=== PATIENT | male | born 1950 | race Caucasian/White ===

== ENCOUNTER 2020-10-31 22:30 | Inpatient (IN) | payer MEDICARE, MEDICAID ==
[~2020-10-31] VITALS: Ht 175.3 cm; Wt 83.5 kg
[2020-11-01] MEDS ORDERED: LABETALOL HCL 20MG/4ML CARPUJECT IV ONE (01:00)
[2020-11-01 01:57] LABS: BASOPHILS % 0.8 % (0.0-2.0); EOSINOPHILS % 0.6 % (0.0-5.0); HEMATOCRIT. 42.6 % (42.0-52.0); HEMOGLOBIN. 14.6 g/dL (14.0-18.0); LYMPHOCYTES % 26.2 % (20.0-50.0); MEAN CORPUSCULAR HEMOGLOBIN 31.5 pg (28.0-32.0); MEAN CORPUSCULAR VOLUME 91.9 fL (80.0-94.0); MEAN PLATELET VOLUME 10.8 fl (7.4-10.4); MONOCYTES % 8.4 % (2.0-8.0); PLATELET 146 x1000/uL (130-400); RED BLOOD CELL COUNT 4.63 mill/uL (4.7-6.1); RED CELL DISTRIBUTION WIDTH 13.8 % (11.6-14.6)
[2020-11-01] MEDS ORDERED: LABETALOL 5MG/ML SYR 20 MG/4 ML SYRINGE IV ONE (02:00)
[2020-11-01 02:04] LABS: CHLORIDE 109 mEq/L (98-107)
[2020-11-01 02:17] LABS: CANNABINOID URINE SCREEN NEGATIVE (NEGATIVE); METHADONE URINE SCREEN NEGATIVE (NEGATIVE); OPIATES URINE SCREEN NEGATIVE (NEGATIVE); PHENCYCLIDINE URINE SCREEN NEGATIVE (NEGATIVE)
[2020-11-01 02:18] LABS: *AMPHETAMINES SCREEN URINE NEGATIVE (NEGATIVE); *BARBITURATES SCREEN URINE NEGATIVE (NEGATIVE); *BENZODIAZEPINES SCREEN URINE NEGATIVE (NEGATIVE); *COCAINE SCREEN URINE NEGATIVE (NEGATIVE)
[2020-11-01] MEDS: NICARDIPINE 40MG/200ML PREMIX 200 ML IV PRN ×2 (02:42→06:50)
[2020-11-01] MEDS ORDERED: ACETAMINOPHEN 325MG TABLET PO PRN ×3 (08:30→14:00)
[2020-11-01] MEDS ORDERED: MAGNESIUM/ALUMINUM HYDROXIDE/SIMETHICONE 30ML UDC PO PRN (14:00)
[2020-11-01] MEDS ORDERED: ONDANSETRON HCL 4MG/2ML INJ IV PRN (14:00)
[2020-11-01] MEDS ORDERED: DIPHENHYDRAMINE 50MG/ML VIAL IV PRN (14:00)
[2020-11-01] MEDS: SODIUM CHLORIDE 0.9% INJ 3ML FLUSH IVF SCH ×2 (14:00→22:35)
[2020-11-01] MEDS ORDERED: CLONIDINE 0.2MG TABLET PO PRN (14:00)
[2020-11-01] MEDS: THIAMINE HCL 100MG TABLET PO SCH (14:09)
[2020-11-01] MEDS: AMLODIPINE 10MG TABLET PO SCH (14:10)
[2020-11-01] MEDS: BENAZEPRIL 10MG TABLET PO SCH (15:15)
[2020-11-01 16:30] VITALS: BP 192/88
[2020-11-01 17:08] VITALS: BP 192/88
[2020-11-01 20:00] VITALS: BP 191/90
[2020-11-01] MEDS: HYDRALAZINE 20MG/ML VIAL IV PRN (20:51)
[2020-11-02] MEDS: SODIUM CHLORIDE 0.9% INJ 3ML FLUSH IVF SCH ×3 (05:09→21:05)
[2020-11-02] MEDS: HYDRALAZINE 20MG/ML VIAL IV PRN (05:09)
[2020-11-02 06:09] LABS: CHLORIDE 109 mEq/L (98-107)
[2020-11-02 06:10] LABS: BASOPHILS % 0.9 % (0.0-2.0); EOSINOPHILS % 1.5 % (0.0-5.0); HEMATOCRIT. 45.3 % (42.0-52.0); HEMOGLOBIN. 15.1 g/dL (14.0-18.0); LYMPHOCYTES % 26.3 % (20.0-50.0); MEAN CORPUSCULAR HEMOGLOBIN 30.8 pg (28.0-32.0); MEAN CORPUSCULAR VOLUME 92.3 fL (80.0-94.0); MEAN PLATELET VOLUME 10.8 fl (7.4-10.4); MONOCYTES % 9.3 % (2.0-8.0); PLATELET 151 x1000/uL (130-400); RED CELL DISTRIBUTION WIDTH 13.8 % (11.6-14.6)
[2020-11-02 06:14] LABS: PHOSPHORUS 4.2 mg/dL (2.5-4.9)
[2020-11-02 08:00] VITALS: BP 202/95
[2020-11-02] MEDS: AMLODIPINE 10MG TABLET PO SCH ×2 (08:29→21:04)
[2020-11-02] MEDS: BENAZEPRIL 10MG TABLET PO SCH ×3 (08:29→21:04)
[2020-11-02] MEDS: THIAMINE HCL 100MG TABLET PO SCH (08:29)
[2020-11-02] MEDS ORDERED: AMLODIPINE 10MG TABLET PO SCH (09:15)
[2020-11-02 09:47] VITALS: BP 193/94
[2020-11-02] MEDS: HYDRALAZINE HCL 50MG TABLET PO SCH ×2 (09:48→21:03)
[2020-11-02 12:00] VITALS: BP 182/95
[2020-11-02] MEDS ORDERED: LABE300T3 MT (13:30)
[2020-11-02] MEDS ORDERED: LOSA100T32 MT (13:30)
[2020-11-02] MEDS ORDERED: LISI20TA31 MT (13:30)
[2020-11-02] MEDS ORDERED: OLAN15TA17 MT (13:30)
[2020-11-02] MEDS ORDERED: HYDR25TA MT (13:30)
[2020-11-02] MEDS ORDERED: IPRA4AER INH (13:30)
[2020-11-02] MEDS ORDERED: DILT60TA35 MT (13:30)
[2020-11-02] MEDS ORDERED: CARV25TA47 MT (13:30)
[2020-11-02] MEDS ORDERED: RISP2TAB85 MT (13:30)
[2020-11-02] MEDS ORDERED: HYDR-4135 MT (13:30)
[2020-11-02] MEDS ORDERED: CLOP75TA33 MT (13:30)
[2020-11-02 16:00] VITALS: BP 184/83
[2020-11-02] MEDS: HYDROCHLOROTHIAZIDE 25MG TABLET PO SCH (17:15)
[2020-11-02] MEDS: OLANZAPINE 10MG TABLET PO SCH (17:16)
[2020-11-02 20:00] VITALS: BP 159/78
[2020-11-02] MEDS: LABETALOL HCL 300MG TABLET PO SCH (21:02)
[2020-11-02] MEDS: RISPERIDONE 1MG TABLET PO SCH (21:03)
[2020-11-02] MEDS: CARVEDILOL 12.5MG TABLET PO SCH (21:03)
[2020-11-03] VITALS: BP 127/58
[2020-11-03 04:00] VITALS: BP 137/71
[2020-11-03] MEDS: SODIUM CHLORIDE 0.9% INJ 3ML FLUSH IVF SCH ×2 (06:00→14:00)
[2020-11-03 10:00] VITALS: BP 157/87
[2020-11-03 12:00] VITALS: BP 157/87
[2020-11-03] MEDS: CARVEDILOL 12.5MG TABLET PO SCH (12:42)
[2020-11-03] MEDS: HYDRALAZINE HCL 50MG TABLET PO SCH (12:42)
[2020-11-03] MEDS: HYDROCHLOROTHIAZIDE 25MG TABLET PO SCH (12:43)
[2020-11-03] MEDS: BENAZEPRIL 10MG TABLET PO SCH (12:44)
[2020-11-03] MEDS: RISPERIDONE 1MG TABLET PO SCH (12:45)
[2020-11-03] MEDS: AMLODIPINE 10MG TABLET PO SCH (12:45)
[2020-11-03] MEDS: LABETALOL HCL 300MG TABLET PO SCH (12:47)
[2020-11-03] MEDS: THIAMINE HCL 100MG TABLET PO SCH (12:48)
[2020-11-03] MEDS: OLANZAPINE 10MG TABLET PO SCH ×2 (15:01→17:00)
[2020-11-03 16:00] VITALS: BP 142/69
[2020-11-03 16:52] VITALS: BP 142/69
== END 2020-11-03 19:42 | disposition home or self-care (01) | DRG 304 ==
LOC: ER 22:30 → MICUSO 11-01 02:14 → 7EST 11-01 15:06
PROVIDERS: ADMIT Internal Medicine; ATTEND Internal Medicine
DX: I16.0 Hypertensive urgency (principal); G93.41 Metabolic encephalopathy; F29 Unspecified psychosis not due to a substance or known physiological condition; Z20.822 Contact with and (suspected) exposure to COVID-19; I10 Essential (primary) hypertension; Z82.49 Family history of ischemic heart disease and other diseases of the circulatory system; Z86.73 Personal history of transient ischemic attack (TIA), and cerebral infarction without residual deficits; Z91.14 Patient's other noncompliance with medication regimen
CPT/HCPCS: 36415; 71045; 80048; 80053; 80305; 80320; 83735; 83880; 84100; 84443; 84484; 85025; 87426; 93005; 99285; J0360; J3490; G0480

== ENCOUNTER 2020-12-12 10:22 | Emergency (ER) | payer OTHER, MEDICAID ==
[~2020-12-12] VITALS: Ht 170.2 cm; Wt 73.5 kg
[~2020-12-12 10:22] MED LIST: CARV25TA47 MT; CLOP75TA33 MT; DILT60TA35 MT; HYDR-4135 MT; HYDR25TA MT; IPRA4AER INH; LABE300T3 MT; LISI20TA31 MT; LOSA100T32 MT; OLAN15TA35 MT; RISP2TAB85 MT
[2020-12-12] MEDS ORDERED: ONDANSETRON HCL 4MG/2ML INJ IV STA (10:36)
[2020-12-12] MEDS ORDERED: MORPHINE SULFATE 4 MG/ML CPJ (NOT FOR IM USE) IV STA (10:36)
[2020-12-12 11:17] LABS: BASOPHILS % 0.9 % (0.0-2.0); EOSINOPHILS % 0.8 % (0.0-5.0); HEMATOCRIT. 36.5 % (42.0-52.0); HEMOGLOBIN. 12.4 g/dL (14.0-18.0); LYMPHOCYTES % 20.1 % (20.0-50.0); MEAN CORPUSCULAR VOLUME 91.4 fL (80.0-94.0); MONOCYTES % 7.9 % (2.0-8.0); NEUTROPHILS % 70.3 % (40.0-76.0); PLATELET 209 x1000/uL (130-400); RED CELL DISTRIBUTION WIDTH 13.9 % (11.6-14.6)
[2020-12-12 11:24] LABS: PROTHROMBIN TIME 10.7 sec (9.6-11.0)
[2020-12-12 11:26] LABS: CHLORIDE 106 mEq/L (98-107)
[2020-12-12 12:26] LABS: CLARITY URINE CLEAR (CLEAR); COLOR URINE DARK YELLOW (YELLOW); KETONES URINE 1+ (NEGATIVE); LEUKOCYTE ESTERASE URINE NEGATIVE (NEGATIVE); NITRITE URINE NEGATIVE (NEGATIVE); OCCULT BLOOD URINE NEGATIVE (NEGATIVE); PROTEIN URINE 2+ (NEGATIVE); SPECIFIC GRAVITY URINE 1.035 (1.005-1.030)
[2020-12-12] MEDS ORDERED: POLYETHYLENE GLYCOL 3350 (17GM) 1 DOSE PACK PO NR (13:15)
[2020-12-12] MEDS ORDERED: SODIUM CHLORIDE 0.9% 1,000 ML IV ONE (13:15)
[2020-12-12] MEDS ORDERED: HYDRALAZINE 20MG/ML VIAL IV ONE (14:00)
[2020-12-12] MEDS ORDERED: HYDRALAZINE 20MG/ML VIAL IV NR (15:00)
[2020-12-12] MEDS ORDERED: ACETAMINOPHEN 325MG TABLET PO NR (15:00)
[2020-12-12 16:25] VITALS: BP 180/84
== END 2020-12-12 16:46 | disposition short-term general hospital (02) ==
LOC: ER 10:22 → EDBEDREQ 13:50 → EDBEDREQSVC 13:50 → EDBEDREQTM 13:50 → ER 16:46 → CANBEDREQ 16:57
DX: I10 Essential (primary) hypertension (principal); K59.00 Constipation, unspecified; D64.9 Anemia, unspecified; E87.2 Acidosis
CPT/HCPCS: 36415; 70450; 71045; 74176; 80053; 81003; 82962; 83605; 84145; 84484; 85025; 85610; 87040; 87086; 93005; 96374; 96376; 99285; J0360